=== PATIENT | male | born 1970 | race Asian ===

== ENCOUNTER 2017-10-11 13:37 | Emergency (ER) | payer MEDICARE, MEDICAID ==
[~2017-10-11] VITALS: Ht 177.8 cm; Wt 122.5 kg
[2017-10-11] MEDS ORDERED: OXYcodone/APAP 5/325MG TABLET ONE (13:53)
[2017-10-11] MEDS ORDERED: DIAZEPAM 5 MG TABLET ONE (13:54)
[2017-10-11 13:56] VITALS: BP 150/89
[2017-10-11] MEDS ORDERED: DIAZEPAM 5 MG TABLET PO ONE (14:00)
[2017-10-11] MEDS ORDERED: PLEASE ENTER HEIGHT AND WEIGHT MC SCH (14:00)
[2017-10-11] MEDS ORDERED: OXYcodone/APAP 5/325MG TABLET PO ONE (14:00)
[2017-10-11] MEDS ORDERED: [UNRECOGNIZED DRUG - REMARK] MC SCH (14:00)
[2017-10-11] MEDS ORDERED: AMIT50TA PO (14:09)
[2017-10-11] MEDS ORDERED: FURO20TA3 PO (14:10)
[2017-10-11] MEDS ORDERED: POTA10CA PO (14:10)
[2017-10-11] MEDS ORDERED: MYCO500T PO (14:11)
[2017-10-11] MEDS ORDERED: SPIR25TA3 PO (14:12)
[2017-10-11] MEDS ORDERED: DULO20CA45 PO (14:12)
[2017-10-11 14:13] LABS: HEMATOCRIT 33.2 % (39.2-51.8); HEMOGLOBIN 11.1 g/dL (13.7-18.0); WHITE BLOOD COUNT 12.1 x10^3/uL (3.4-10)
[2017-10-11] MEDS ORDERED: DEXA4TAB PO (14:14)
[2017-10-11] MEDS ORDERED: ALLO100T64 PO (14:15)
[2017-10-11] MEDS ORDERED: METO25TA35 PO (14:15)
[2017-10-11] MEDS ORDERED: DOXY100T10 PO (14:16)
[2017-10-11] MEDS ORDERED: PRED20TA PO (14:16)
[2017-10-11] MEDS ORDERED: INDO50CA PO (14:17)
[2017-10-11] MEDS ORDERED: COLC0.6T37 PO (14:17)
[2017-10-11 14:27] LABS: BLOOD UREA NITROGEN 9 mg/dL (7-18)
== END 2017-10-11 15:10 | disposition home or self-care (01) ==
LOC: ED 14:26
DX: M13.811 Other specified arthritis, right shoulder (principal); M13.812 Other specified arthritis, left shoulder; M13.832 Other specified arthritis, left wrist; M13.831 Other specified arthritis, right wrist; M10.9 Gout, unspecified; G25.82 Stiff-man syndrome; I10 Essential (primary) hypertension; J45.909 Unspecified asthma, uncomplicated
CPT/HCPCS: 36415; 80048; 85025; 93005; 99284; 99285